=== PATIENT | male | born 1940 | race Caucasian/White ===

== ENCOUNTER 2019-03-02 10:19 | Emergency (ER) | payer MEDICAID ==
[~2019-03-02] VITALS: Ht 172.7 cm; Wt 78.9 kg
[2019-03-02] MEDS ORDERED: CALC1TAB91 PO (10:49)
[2019-03-02] MEDS ORDERED: ERGO50CA PO (10:49)
[2019-03-02] MEDS ORDERED: LISI-607 PO (10:49)
[2019-03-02] MEDS ORDERED: METF-440 PO (10:49)
[2019-03-02 11:22] LABS: *BILIRUBIN,URIN NEGATIVE (NEGATIVE); *BLOOD, URINE NEGATIVE (NEGATIVE); *CLARITY,URINE CLEAR (CLEAR); *COLOR,URINE YELLOW (YELLOW); *KETONES,URINE NEGATIVE (NEGATIVE); *UROBILINOGEN,URINE 0.2 E.U./dl (NORMAL); LEUKOCYTE ESTERASE ,URINE NEGATIVE (NEGATIVE); NITRITE, URINE NEGATIVE (NEGATIVE); PH,URINE 5.5 (5.0-8.0); UGLUCOSE TRACE (NEGATIVE)
--- NOTE | 2019-03-02 11:58 | NUR ---
Patient discharged to home in stable conditon. Written and verbal after care instructions given. Patient verbalizes understanding of instructions.pt walks in steady gait.
[2019-03-02 12:00] VITALS: BP 129/81
== END 2019-03-02 12:01 | disposition home or self-care (01) ==
LOC: ER 10:19
DX: R10.9 Unspecified abdominal pain (principal); E11.9 Type 2 diabetes mellitus without complications; I10 Essential (primary) hypertension; Z79.899 Other long term (current) drug therapy
CPT/HCPCS: A4663